=== PATIENT | female | born 1990 | race Caucasian/White ===

== ENCOUNTER 2018-05-31 12:25 | Emergency (ER) | payer OTHER, SELFPAY ==
[2018-05-31 12:29] VITALS: BP 121/69; PULSE 70; RESP 14; TEMP 36.7; O2SAT 100; BMI 29.2
--- NOTE | 2018-05-31 12:42 | ED.ABDPAIN ---
HPI - Abdominal Pain General Chief Complaint: Abdominal Pain Stated Complaint: Abdominal/pelvic pain Time Seen by Provider: 05/31/18 12:40 Source: patient Mode of arrival: ambulatory Limitations: no limitations History of Present Illness HPI narrative: 28-year-old female here for evaluation of left sided abdominal pain. Patient states has been going on for the past couple days. No nausea vomiting. No urinary symptoms. No vaginal bleeding. No change in bowel habits. No prior abdominal surgeries. Has had an elective earlier this year. Not currently on control. Related Data Home Medications Medication Instructions Recorded Confirmed tofacitinib [Xeljanz] 5 mg PO BID 05/31/18 05/31/18 zonisamide 500 mg PO DAILY 05/31/18 05/31/18 Allergies Allergy/AdvReac Type Severity Reaction Status Date / Time infliximab [From Remicade] Allergy Intermediate Hives Verified 05/31/18 12:32 cefaclor [From Ceclor] Allergy Unknown Verified 05/31/18 12:32 Review of Systems Constitutional Denies fever(s) and Denies headache(s) ENT Ears, Nose, Mouth, and Throat: Denies headache(s) Cardiovascular Denies chest pain and Denies dyspnea Respiratory Denies dyspnea Gastrointestinal Gastrointestinal: Reports abdominal pain, Denies nausea and Denies vomiting Genitourinary Denies dysuria, Denies pelvic pain, Denies flank pain and Denies urinary hesitancy Musculoskeletal Denies myalgias and Denies arthralgias Integumentary/Breasts Denies lesions and Denies rash Neurologic Denies headache(s) PFSH Medical History Seizures (Acute) Rheumatoid arthritis (Acute) Surgical History No pertinent past surgical history (Acute) Social History Smoking Status: Never smoker Exam Initial Vital Signs Initial Vital Signs: Vital Signs Temperature 98.1 F 05/31/18 12:29 Pulse Rate 70 05/31/18 12:29 Respiratory Rate 14 05/31/18 12:29 Blood Pressure 121/69 05/31/18 12:29 Pulse Oximetry 100 05/31/18 12:29 Const General: cooperative, healthy appearing, comfortable, well developed, well groomed and No acute distress Orientation: alert, awake and oriented x3 HENMT Head: normal to inspection and normocephalic Resp Effort & Inspection: normal respiratory effort Auscultation: clear to auscultation bilaterally Cardio Rate: regular rate Rhythm: regular rhythm Pulses: radial pulses present GI Inspection: non-distended Palpation: soft, No firm and tender (Left lower quadrant/left adnexa) Back/Spine/Pelvis Back: No CVA tenderness Skin Lesions: no lesions Rashes: no rashes Neuro General: alert, awake and oriented x3 Extrem General: normal to inspection and capillary refill normal Psych Appearance: grossly normal and well kempt Course Orders Ordered: ED Orders 05/31/18 13:20 US pelvic complete Stat Discontinued Medications Ibuprofen (Advil) 800 mg PO NOW ONE Stop: 05/31/18 13:41 Last Admin: 05/31/18 13:47 Dose: 800 mg Vital Signs - 8 hr 05/31/18 12:29 05/31/18 14:17 Temperature 98.1 F 98.0 F Pulse Rate 70 66 Respiratory Rate 14 14 Blood Pressure 121/69 Blood Pressure [Right Arm] 110/66 Pulse Oximetry 100 99 MDM - Abdominal Pain Lab Data Point of care testing: Point of Care Testing Test Results Negative Urine Dip Bedside Urine Glucose Negative Bedside Urine Bilirubin - Negative Bedside Urine Ketone - Negative Urine Specific [place] 1.015 Bedside Urine Occult Blood - Negative Bedside Urine pH 8.0 Bedside Urine Protein - Negative Bedside Urine Urobilinogen - Negative Bedside Urine Nitrite - Negative Bedside Urine Leukocytes - Negative Esterase Imaging Data Pelvic ultrasound: Radiologist's impression: [place] [address] Ultrasound Report Signed Patient: Lisbeth Sykes MR#: [id number] : 1990 Acct:[id number] Age/Sex: 28 / F Date of Service: 05/31/18 Loc: ED Accession Number: [id number] Procedure: US pelvic complete Ordering Provider: Ronald Ovalles D.O. PROCEDURE: US PELVIC COMPLETE INDICATIONS: PAIN TECHNIQUE: Real-time scanning was performed of the pelvic organs, with image documentation. Additional endovaginal scanning was necessary due to incomplete visualization of the adnexal and endometrial structures by transabdominal scanning. COMPARISON: None. FINDINGS: Transabdominal scanning: Limited scanning through the kidneys shows no hydronephrosis. No pathologic free abdominal or pelvic fluid. Endovaginal scanning: Uterus: Uterus is normal in size at 8.8 x 2.9 x 4.2 cm. The endometrium measures 7 mm in combined thickness. Ovaries: The right ovary measures 3.7 x 2.6 x 1.7 cm. The left ovary measures 3.2 x 1.9 x 3.4 cm. The ovaries have a normal sonographic appearance, with physiologic appearing simple cyst seen involving each ovary. No adnexal masses are seen. IMPRESSION: Pelvic ultrasound within normal limits, with physiologic simple appearing cysts seen involving each ovary. Dictated by: Marty Gonzales M.D. on 05/31/2018 at 13:47 MDM Narrative Medical decision making narrative: Ultrasound shows bilateral ovarian cysts. Unsure if this is the exact etiology of her pain. No urinary tract infection. test was negative. Has a benign abdominal exam. Will hold on CT scan for now patient given return precautions she expressed understanding agreement plan Discharge Plan Departure Patient Disposition: Home Clinical Impression: Abdominal pain Instructions: DI for Abdominal Pain-Adult Activity Restrictions/Additional Instructions: Recommend that you follow up with your primary care doctor. Return to the emergency department for any new or worsening symptoms Prescriptions: No Action zonisamide 100 mg Capsule 500 mg PO DAILY RF: 0 tofacitinib [Xeljanz] 5 mg Tablet 5 mg PO BID RF: 0
--- NOTE | 2018-05-31 13:20 | DI.US.S_ITS ---
PROCEDURE: US PELVIC COMPLETE INDICATIONS: PAIN TECHNIQUE: Real-time scanning was performed of the pelvic organs, with image documentation. Additional endovaginal scanning was necessary due to incomplete visualization of the adnexal and endometrial structures by transabdominal scanning. COMPARISON: None. FINDINGS: Transabdominal scanning: Limited scanning through the kidneys shows no hydronephrosis. No pathologic free abdominal or pelvic fluid. Endovaginal scanning: Uterus: Uterus is normal in size at 8.8 x 2.9 x 4.2 cm. The endometrium measures 7 mm in combined thickness. Ovaries: The right ovary measures 3.7 x 2.6 x 1.7 cm. The left ovary measures 3.2 x 1.9 x 3.4 cm. The ovaries have a normal sonographic appearance, with physiologic appearing simple cyst seen involving each ovary. No adnexal masses are seen. IMPRESSION: Pelvic ultrasound within normal limits, with physiologic simple appearing cysts seen involving each ovary. Dictated by: Marty Gonzales M.D. on 05/31/2018 at 13:47 Approved by: Marty Gonzales M.D. on 05/31/2018 at 13:48
[2018-05-31] MEDS: IBUPROFEN 400 MG TABLET 800 MG PO (13:47)
[2018-05-31 14:17] VITALS: BP 110/66; PULSE 66; RESP 14; TEMP 36.7; O2SAT 99
== END 2018-05-31 15:11 | disposition home or self-care (01) ==
PROVIDERS: Emergency Provider Emergency Medicine
DX: R10.9 Unspecified abdominal pain (principal)
CPT/HCPCS: 76830; 76856; 81003; 81025; 99282; 99284

== ENCOUNTER 2018-06-02 14:43 | Emergency (ER) | payer OTHER, SELFPAY ==
[2018-06-02 14:52] VITALS: BP 102/66; PULSE 68; RESP 18; TEMP 36.1; O2SAT 99; BMI 28.6
--- NOTE | 2018-06-02 17:12 | ED_ITS ---
HPI - Abdominal Pain <Thelma Brewer PA-C - Last Filed: 06/02/18 23:11> General Chief Complaint: Abdominal Pain Stated Complaint: abdominal pain on left and right side Time Seen by Provider: 06/02/18 17:10 Source: patient Mode of arrival: ambulatory Limitations: no limitations History of Present Illness HPI narrative: This 28-year-old female returns to ED with persistent abdominal pain. She was seen here 2 days ago, pain initially started 5 days ago but was minimal. She states it started on the left side, but now more in the midline and right side. She states that she has also had some pain in the left flank area off and on. She states that she came back today mainly because the pain was severe enough that she could not sleep last night. [id number] NSAID was not helping so she did take a hydrocodone eventually which did help. She states she has not had any fever, chills, or sweats. She has not had any hematuria or urinary frequency today, but did have some urinary frequency yesterday. She states that at times she feels like she has pain/pressure inside her bladder when urinating but not dysuria. She has not had any nausea or vomiting and has been eating normally. She has not had any bowel habit change or diarrhea nor blood in the stools, had a normal bowel movement today. She states she had some twinges in her chest last night when she was trying to sleep but has not had any chest pain or dyspnea today. No new pain or swelling in the extremities. No new rashes. She denies any recent medication changes, antibiotics or foreign travel. Related Data Home Medications Medication Instructions Recorded Confirmed tofacitinib [Xeljanz] 5 mg PO BID 05/31/18 05/31/18 zonisamide 500 mg PO DAILY 05/31/18 05/31/18 Previous Rx's Medication Instructions Recorded hydrocodone-acetaminophen 1 tab PO Q4-6H PRN #8 tab 06/02/18 Allergies Allergy/AdvReac Type Severity Reaction Status Date / Time infliximab [From Remicade] Allergy Intermediate Hives Verified 06/02/18 14:56 cefaclor [From Ceclor] Allergy Unknown Verified 06/02/18 14:56 Review of Systems <Thelma Brewer PA-C - Last Filed: 06/02/18 23:11> Review of Systems All systems reviewed & are unremarkable except as noted in HPI and below Exam <Thelma Brewer PA-C - Last Filed: 06/02/18 23:11> Narrative Exam Narrative: GENERAL APPEARANCE: Patient sitting comfortably, in no distress. HEENT: PERRL, EOMI, no scleral icterus, normal oropharynx NECK: Supple LUNGS: Clear to auscultation bilaterally. HEART: Rate and rhythm regular, normal S1 and S2, no S3 or S4. ABDOMEN: Soft, nondistended, bowel sounds present x 4 quadrants, no masses palpable, no hepatosplenomegaly. Moderate tenderness in the right lower quadrant and midline, just medial to McBurney's point. No CVAT. No suprapubic tenderness. No guarding or rebound EXTREMITIES: No edema, no cyanosis DERMATOLOGIC: No jaundice or exanthem NEUROLOGIC: Alert and oriented with normal speech and coordination Initial Vital Signs Initial Vital Signs: Vital Signs Temperature 97.0 F L 06/02/18 14:52 Pulse Rate 68 06/02/18 14:52 Respiratory Rate 18 06/02/18 14:52 Blood Pressure 102/66 06/02/18 14:52 Pulse Oximetry 99 06/02/18 14:52 <Ki Ceballos DO - Last Filed: 06/03/18 03:26> Initial Vital Signs Initial Vital Signs: Vital Signs Temperature 97.0 F L 06/02/18 14:52 Pulse Rate 68 06/02/18 14:52 Respiratory Rate 18 06/02/18 14:52 Blood Pressure 102/66 06/02/18 14:52 Pulse Oximetry 99 06/02/18 14:52 Course <Thelma Brewer PA-C - Last Filed: 06/02/18 23:11> Additional Information: Reviewed findings with patient, no evidence of acute surgical issue on her lab work or scan today. We discussed presence of ovarian cysts seen at last visit, but not clear whether this is related to her pain. She has some gallstones but no evidence of acute cholecystitis. She has moved recently and has been to the gym, no known acute injury. Advised follow-up with PCP closely for monitoring and she will call for appointment tomorrow. Explained she may need further workup and testing by GI. She agreed to return if any acutely worsening symptoms or new symptoms such as vomiting or fever. She did feel improved at the time of discharge Orders Ordered: Discontinued Medications Hydrocodone Bitart/Acetaminophen ([place] 5/325) 1 tab PO NOW ONE Stop: 06/02/18 17:30 Last Admin: 06/02/18 18:04 Dose: 1 tab Sodium Chloride (Normal Saline 0.9%) 1,000 mls @ 1,000 mls/hr IV BOLUS ONE Stop: 06/02/18 18:28 Last Infusion: 06/02/18 19:07 Dose: 0 mls/hr Admin: 06/02/18 18:05 Dose: 1,000 mls/hr Ketorolac Tromethamine (Toradol) 30 mg IM NOW ONE Stop: 06/02/18 17:30 Last Admin: 06/02/18 18:04 Dose: 30 mg Vital Signs - 8 hr 06/02/18 20:35 Pulse Rate 65 Respiratory Rate 20 Blood Pressure 110/70 Pulse Oximetry 100 <Ki Ceballos DO - Last Filed: 06/03/18 03:26> Orders Ordered: Discontinued Medications Hydrocodone Bitart/Acetaminophen ([place] 5/325) 1 tab PO NOW ONE Stop: 06/02/18 17:30 Last Admin: 06/02/18 18:04 Dose: 1 tab Sodium Chloride (Normal Saline 0.9%) 1,000 mls @ 1,000 mls/hr IV BOLUS ONE Stop: 06/02/18 18:28 Last Infusion: 06/02/18 19:07 Dose: 0 mls/hr Admin: 06/02/18 18:05 Dose: 1,000 mls/hr Ketorolac Tromethamine (Toradol) 30 mg IM NOW ONE Stop: 06/02/18 17:30 Last Admin: 06/02/18 18:04 Dose: 30 mg Vital Signs - 8 hr 06/02/18 20:35 Pulse Rate 65 Respiratory Rate 20 Blood Pressure 110/70 Pulse Oximetry 100 MDM - Abdominal Pain <Thelma Brewer PA-C - Last Filed: 06/02/18 23:11> Lab Data Result diagrams: 06/02/18 17:13 06/02/18 17:13 Lab Results 06/02/18 06/02/18 Range/Units 17:13 17:13 WBC 7.8 (4.5-11.0) X10^3/uL RBC 4.26 (4.0-5.2) X10^6/uL Hgb 12.9 (12.0-16.0) g/dL Hct 37.7 (36-46) % MCV 88.4 (80-100) fL MCH 30.2 (26-34) PG MCHC 34.2 (30-36) % RDW 13.2 (11.6-14.8) % Plt Count 284 (150-400) X10^3/uL Neut % (Auto) 68.3 (50-75) % Lymph % (Auto) 22.9 L (25-40) % Gordon % (Auto) 6.5 (3-14) % Eos % (Auto) 1.8 L (2-4) % Baso % (Auto) 0.5 (0-2) % Neut # (Auto) 5300 (4843-3134) /uL Sodium 141 (137-145) mmol/L Potassium 4.1 (3.4-5.1) mmol/L Chloride 108 H (98-107) mmol/L Carbon Dioxide 23 (22-32) mmol/L BUN 11 (7-17) mg/dL Creatinine 0.90 (0.52-1.04) mg/dL Estimated GFR > 60.0 (>60) mL/min BUN/Creatinine Ratio 12.2 (6-22) Glucose 93 (70-100) mg/dL Calcium 9.1 (8.4-10.2) mg/dL Total Bilirubin 0.2 (0.2-1.3) mg/dL AST 20 (14-36) IU/L ALT 15 (9-52) IU/L Alkaline Phosphatase 67 (38-126) U/L Total Protein 7.3 (6.3-8.2) g/dL Albumin 4.2 (3.5-5.0) g/dL Globulin 3.1 (1.7-4.1) g/dL Albumin/Globulin Ratio 1.4 (1.0-2.8) Lipase 69 (23-300) U/L Point of care testing: Urine Dip Bedside Urine Glucose Negative Bedside Urine Bilirubin - Negative Bedside Urine Ketone - Negative Urine Specific [place] 1.010 Bedside Urine Occult Blood - Negative Bedside Urine pH 7.5 Bedside Urine Protein - Negative Bedside Urine Urobilinogen - Negative Bedside Urine Nitrite - Negative Bedside Urine Leukocytes - Negative Esterase <Ki Kincaid, DO - Last Filed: 06/03/18 03:26> Lab Data Lab Results 06/02/18 06/02/18 Range/Units 17:13 17:13 WBC 7.8 (4.5-11.0) X10^3/uL RBC 4.26 (4.0-5.2) X10^6/uL Hgb 12.9 (12.0-16.0) g/dL Hct 37.7 (36-46) % MCV 88.4 (80-100) fL MCH 30.2 (26-34) PG MCHC 34.2 (30-36) % RDW 13.2 (11.6-14.8) % Plt Count 284 (150-400) X10^3/uL Neut % (Auto) 68.3 (50-75) % Lymph % (Auto) 22.9 L (25-40) % Gordon % (Auto) 6.5 (3-14) % Eos % (Auto) 1.8 L (2-4) % Baso % (Auto) 0.5 (0-2) % Neut # (Auto) 5300 (6529-2840) /uL Sodium 141 (137-145) mmol/L Potassium 4.1 (3.4-5.1) mmol/L Chloride 108 H (98-107) mmol/L Carbon Dioxide 23 (22-32) mmol/L BUN 11 (7-17) mg/dL Creatinine 0.90 (0.52-1.04) mg/dL Estimated GFR > 60.0 (>60) mL/min BUN/Creatinine Ratio 12.2 (6-22) Glucose 93 (70-100) mg/dL Calcium 9.1 (8.4-10.2) mg/dL Total Bilirubin 0.2 (0.2-1.3) mg/dL AST 20 (14-36) IU/L ALT 15 (9-52) IU/L Alkaline Phosphatase 67 (38-126) U/L Total Protein 7.3 (6.3-8.2) g/dL Albumin 4.2 (3.5-5.0) g/dL Globulin 3.1 (1.7-4.1) g/dL Albumin/Globulin Ratio 1.4 (1.0-2.8) Lipase 69 (23-300) U/L Point of care testing: Urine Dip Bedside Urine Glucose Negative Bedside Urine Bilirubin - Negative Bedside Urine Ketone - Negative Urine Specific [place] 1.010 Bedside Urine Occult Blood - Negative Bedside Urine pH 7.5 Bedside Urine Protein - Negative Bedside Urine Urobilinogen - Negative Bedside Urine Nitrite - Negative Bedside Urine Leukocytes - Negative Esterase Discharge Plan Departure Patient Disposition: Home Clinical Impression: Abdominal pain Discharge Date/Time: 06/02/18 20:35 Interventions: ED Discharge Assessment Last Done: 06/02/18 20:35 Instructions: DI for Abdominal Pain-Adult Activity Restrictions/Additional Instructions: The source of your abdominal pain is not clear today. There do not appear to be any acute surgical problems on your imaging studies or lab work. You do have some ovarian cysts, but these may not be the source of your pain. They could be coincidental. You have some stones in your gallbladder but it does not appear to be inflamed. You can continue the hydrocodone/acetaminophen as needed this evening, but please call your PCM 1st thing in the morning and arrange follow-up for tomorrow. We like to follow abdominal pain closely, and you may need further evaluation or testing depending upon your progress. As we talked about, you should return here if any acutely worsening or new symptoms such as fever or vomiting with this. Prescriptions: New hydrocodone-acetaminophen 5-325 mg tablet 1 tab PO Q4-6H PRN (Reason: abdominal pain) Qty: 8 RF: 0 No Action zonisamide 100 mg Capsule 500 mg PO DAILY RF: 0 tofacitinib [Xeljanz] 5 mg Tablet 5 mg PO BID RF: 0 Referrals: [facility] [Provider Group] <Ki Ceballos, - Last Filed: 06/03/18 03:26> Cosign ED Attending Marie Attestation: I was immediately available in the department for consultation. Documentation has been reviewed. I agree with assessment and plan.
[2018-06-02 17:23] LABS: Add Manual Diff / Slide Review NO; Basophils Percent Auto 0.5 % (0-2); Eosinophils Percent Auto 1.8 % (2-4); Hematocrit 37.7 % (36-46); Hemoglobin 12.9 g/dL (12.0-16.0); Lymphocytes Percent Auto 22.9 % (25-40); Mean Corpuscular HGB Conc 34.2 % (30-36); Mean Corpuscular Hemoglobin 30.2 PG (26-34); Mean Corpuscular Volume 88.4 fL (80-100); Monocytes Percent Auto 6.5 % (3-14); Neutrophils Absolute Auto 5300 /uL (1500-7000); Neutrophils Percent Auto 68.3 % (50-75); Platelet Count 284 X10^3/uL (150-400); Red Blood Cell Count 4.26 X10^6/uL (4.0-5.2); Red Cell Distribution Width 13.2 % (11.6-14.8); White Blood Cell Count 7.8 X10^3/uL (4.5-11.0)
[2018-06-02 17:30] LABS: Alanine Aminotransferase 15 IU/L (9-52); Albumin 4.2 g/dL (3.5-5.0); Albumin Globulin Ratio 1.4 (1.0-2.8); Alkaline Phosphatase 67 U/L (38-126); Aspartate Aminotransferase 20 IU/L (14-36); BUN Creatinine Ratio 12.2 (6-22); Bilirubin Total 0.2 mg/dL (0.2-1.3); Blood Urea Nitrogen 11 mg/dL (7-17); Calcium 9.1 mg/dL (8.4-10.2); Carbon Dioxide 23 mmol/L (22-32); Chloride 108 mmol/L (98-107); Estimated Glomerular Filt Rate > 60.0 mL/min (>60); Globulin 3.1 g/dL (1.7-4.1); Glucose 93 mg/dL (70-100); HEMOLYSIS < 15 (0-50); Potassium 4.1 mmol/L (3.4-5.1); Sodium 141 mmol/L (137-145); Total Protein 7.3 g/dL (6.3-8.2)
[2018-06-02 17:39] LABS: Lipase 69 U/L (23-300)
--- NOTE | 2018-06-02 17:43 | DI.CT.S_ITS ---
PROCEDURE: CT ABDOMEN PELVIS W CON INDICATIONS: Lower quadrant abdominal pain, increasing on right. TECHNIQUE: After the administration of intravenous contrast, 5 mm thick sections acquired from the diaphragm to the symphysis. 5 mm coronal and sagittal reformats were acquired. For radiation dose reduction, the following was used: automated exposure control, adjustment of mA and/or kV according to patient size. COMPARISON: None. FINDINGS: Image quality: Excellent. ABDOMEN: Lung bases: Lung bases are clear. Heart size is normal. Solid organs: Liver is mildly enlarged with steatosis. Gallbladder demonstrates numerous gallstones without wall thickening. Biliary system is non dilated. Pancreas enhances normally. Spleen is normal in size and enhancement. No adrenal nodules. Kidneys demonstrate normal size and enhancement, without hydronephrosis. Peritoneum and bowel: Bowel loops demonstrate normal wall thickness and caliber. No free fluid or air. The appendix is unremarkable. Nodes and vessels: No retroperitoneal or mesenteric adenopathy by size criteria. Aorta and inferior vena cava are normal in size. Miscellaneous: No ventral hernias. PELVIS: Genitourinary: Bladder wall thickness is normal. Bilateral low attenuation ovarian foci are present measuring 25 mm on the left and 16 mm on the right. Miscellaneous: No inguinal hernias or adenopathy. Bones: No suspicious bony lesions. No vertebral body compression fractures. IMPRESSION: 1. Left ovarian cyst and prominent right ovarian follicle. 2. Cholelithiasis without imaging evidence of cholecystitis. Dictated by: Yesica Ansari M.D. on 06/02/2018 at 19:20 Approved by: Yesica Ansari M.D. on 06/02/2018 at 19:22
[2018-06-02] MEDS: HYDROCODONE/ACET 5/325 TABLET 1 TAB PO (18:04)
[2018-06-02] MEDS: KETOROLAC 60 MG/2 ML VIAL 30 MG IM (18:04)
[2018-06-02] MEDS: SODIUM CHLORIDE 0.9% 1,000 ML 1000 ML IV (18:05)
[2018-06-02 20:35] VITALS: BP 110/70; PULSE 65; RESP 20; O2SAT 100
== END 2018-06-02 20:35 | disposition home or self-care (01) ==
PROVIDERS: Emergency Provider Internal Medicine
DX: R10.9 Unspecified abdominal pain (principal)
CPT/HCPCS: 74177; 80053; 81003; 83690; 85025; 96360; 96372; 99283; 99285; J1885; Q9967

== ENCOUNTER 2018-08-15 12:56 | Emergency (ER) | payer OTHER, SELFPAY ==
[2018-08-15 13:03] VITALS: BP 106/69; PULSE 64; RESP 18; TEMP 36.8; O2SAT 100; BMI 30.9
--- NOTE | 2018-08-15 14:24 | PC.NURSE ---
registration states, pt just left, didnt want to sign paper works
--- NOTE | 2018-08-20 04:52 | ED.SEIZURE ---
HPI - Seizure General Chief Complaint: Seizure Stated Complaint: SEIZURES ON THURSDAY/SYMPTOMS STILL History of Present Illness HPI Narrative: Patient left the emergency department prior to evaluation by myself. Related Data Home Medications Medication Instructions Recorded Confirmed tofacitinib [Xeljanz] 5 mg PO BID 05/31/18 05/31/18 zonisamide 500 mg PO DAILY 05/31/18 05/31/18 Previous Rx's Medication Instructions Recorded hydrocodone-acetaminophen 1 tab PO Q4-6H PRN #8 tab 06/02/18 Allergies Allergy/AdvReac Type Severity Reaction Status Date / Time infliximab [From Remicade] Allergy Intermediate Hives Verified 08/15/18 13:18 cefaclor [From Ceclor] Allergy Unknown Verified 08/15/18 13:18 PFSH Medical History Rheumatoid arthritis (Chronic) Seizures (Chronic) Surgical History No pertinent past surgical history (Chronic) Social History Smoking Status: Never smoker Social History Smoking Status: Never smoker Exam Initial Vital Signs Initial Vital Signs: Vital Signs Temperature 98.2 F 08/15/18 13:03 Pulse Rate 64 08/15/18 13:03 Respiratory Rate 18 08/15/18 13:03 Blood Pressure 106/69 08/15/18 13:03 Pulse Oximetry 100 08/15/18 13:03 Discharge Plan Departure Patient Disposition: Left Without Being Seen Clinical Impression: Patient left without being seen Discharge Date/Time: 08/15/18 14:57 Interventions: ED Discharge Assessment Last Done: 08/15/18 14:57
== END 2018-08-15 14:57 | disposition left against medical advice (07) ==
PROVIDERS: Emergency Provider Emergency Medicine
CPT/HCPCS: 99282

== ENCOUNTER → 2019-03-04 09:50 | Outpatient (CLI) | payer OTHER, SELFPAY ==
--- NOTE | 2019-03-04 | DI.MRI.S_ITS ---
PROCEDURE: MR HIP LT WO/W CON INDICATIONS: Pain in left hip TECHNIQUE: Noncontrast coronal T1 spin echo and STIR through the bony pelvis. Coronal and axial T2 fast spin echo with fat saturation, axial T1 spin echo with fat saturation, sagittal T1 spin echo, and oblique axial T2 fast spin echo with fat saturation through the hip. Post-contrast axial, coronal, and sagittal spin echo with fat saturation through the hip. COMPARISON: [facility], CR, XR HIP 2 VIEWS BILATERAL, 10/09/2018, 8:58. FINDINGS: Image quality: Excellent. Bones and joints: No suspicious osseous enhancement. Bone marrow of the pelvic ring and proximal femurs show normal signal throughout. No intraosseous lesions or fractures. No avascular necrosis of the femoral heads. The visualized lower lumbar spine appears normally aligned. Tendons and ligaments: The gluteus medius and minimus tendons appear intact, without associated muscle atrophy. The nearby proximal iliotibial band also appears intact. The iliopsoas tendon appears intact, without adjacent bursal fluid collections or evidence for impingement syndrome. The origin of the hamstring tendon is intact at the ischial tuberosity, as well as the associated sacrotuberous ligament. The straight and reflected heads of the rectus femoris muscle origin appear intact, as well as the conjoint tendon. The ligamentum teres appears intact where visualized. Labrum and cartilage: Any abscess of intra-articular contrast, there is signal abnormality and subtle contrast irregularity involving the posterior superior labrum concerning for focal labral tear. Cartilage surface of the femoral head appears of normal thickness. The alpha angle of the femur is within normal limits at less than 55 degrees. Soft tissues: No suspicious soft tissue enhancement. Visualized muscles demonstrate normal bulk and internal signal. Quadratus femoris muscle demonstrates no internal edema to suggest ischiofemoral impingement. The proximal sciatic neurovascular bundle appears normal adjacent to the hamstring tendons. No free pelvic fluid. Bladder wall thickness is normal. Genitourinary structures and bowel loops appear normal where visualized. IMPRESSION: 1. No evidence of hip dysplasia. No marrow edema. No fracture or dislocation. No area of bony erosion. Visualized bilateral sacroiliac joints are intact. 2. Finding is suspicious for focal superior posterior left hip labral tear. 3. No gross muscle or tendon soft tissue abnormality. No area of abnormal contrast enhancement. Dictated by: Hugo Melgar M.D. on 03/04/2019 at 11:15 Approved by: Hugo Melgar M.D. on 03/04/2019 at 11:32
== END ==
PROVIDERS: PCP Family Medicine; Visit Provider Internal Medicine Rheumatology
DX: M25.552 Pain in left hip (principal)
CPT/HCPCS: 73723